=== PATIENT | male | born 1965 | race Two or more races ===

== ENCOUNTER 2024-03-24 09:45 | Emergency (ER) | payer OTHER ==
[~2024-03-24] VITALS: Ht 162.6 cm; Wt 95.3 kg
[2024-03-24] MEDS ORDERED: NEXIUM 24HR20 M1 (10:12)
[2024-03-24] MEDS ORDERED: OZEMPIC0.25 MG/02 (10:12)
[2024-03-24] MEDS ORDERED: ZITHROMAX500 MG PO (10:27)
[2024-03-24] MEDS ORDERED: LEVALBUTER0.63 MG/3 IH (10:27)
[2024-03-24] MEDS ORDERED: BENZONATATE200 M1 PO (10:27)
[2024-03-24] MEDS ORDERED: MEDROLPACK PO (10:27)
[2024-03-24] MEDS ORDERED: MONTELUKAST SODI4 M1 PO (10:27)
== END 2024-03-24 11:27 | disposition home or self-care (01) ==
LOC: ER 09:47
DX: J00 Acute nasopharyngitis [common cold] (principal); R05.9 Cough, unspecified; E11.9 Type 2 diabetes mellitus without complications